=== PATIENT | female | born 1975 | race Caucasian/White ===

== ENCOUNTER 2016-10-29 13:20 | Emergency (ER) | payer MEDICARE, MEDICAID ==
[~2016-10-29] VITALS: Ht 162.6 cm; Wt 77.6 kg
[~2016-10-29 13:20] MED LIST: ALPR0.25; BUTA1CAP57 PO; CEPH-368 PO; CYCL-259 PO; DIAZ5TAB PO; ESTR1PAT10; METH750T2 PO; NICO1PAT5 TD; OXYC-229 PO; ROBAXIN; TOPI50TA35 PO; VENL150C PO; ZOLP12.52 PO
[2016-10-29 16:08] VITALS: BP 143/92
[2016-10-29] MEDS ORDERED: HYDROmorphone 1 MG/ML, 1ML ONE (16:37)
[2016-10-29 16:47] LABS: BLOOD UREA NITROGEN 17 mg/dL (7-18)
[2016-10-29] MEDS ORDERED: LORazepam 2 MG/ML, 1ML ONE (16:48)
[2016-10-29 16:52] LABS: IS PT STATUS REG ER OR PRE ER? YES
== END 2016-10-29 17:54 | disposition home or self-care (01) ==
LOC: ED 17:48
DX: R07.1 Chest pain on breathing (principal)
CPT/HCPCS: 36415; 71020; 80048; 82040; 84484; 85025; 93005

== ENCOUNTER 2019-12-31 12:19 | Emergency (ER) | payer MEDICARE ==
[~2019-12-31] VITALS: Ht 162.6 cm; Wt 90.0 kg
[~2019-12-31 12:19] MED LIST changes: +NICO-487 TD; -NICO1PAT5 TD; -OXYC-229 PO; +OXYC-307 PO
--- NOTE | 2019-12-31 12:20 | NUR ---
PT CHELSIE REMSA AFTER HER BROTHER CALLED EMS AFTER SHE SENT A PICTURE OF HER FACE, WITH RIGHT EYE DROOP TO HIM. PT PRESENTS A&OX4, SLOW TO RESPOND BUT ANSWERS WITH APPROPRIATE WORDS. R SIDE WEAKNESS PRESENT, PT ABLE TO MOVE ALL EXTREMITIES, AND DENIES LOSS OF FEELING. NO SIGNS OF ACUTE DISTRESS, RESPIRATIONS EVEN AND UNLABORED.
--- NOTE | 2019-12-31 12:20 | NUR ---
ERP TO BEDSIDE. VSS. WILL CONTINUE TO MONITOR AND WATCH FOR ORDERS.
--- NOTE | 2019-12-31 12:59 | NUR ---
PT TO IMAGING
[2019-12-31 13:10] LABS: BASOPHILS # (AUTO) 0.02 x10^3/uL (0-0.1); BASOPHILS % (AUTO) 1 % (0-1); EOSINOPHILS # (AUTO) 0.13 x10^3/uL (0-0.4); EOSINOPHILS % (AUTO) 3 % (1-7); LYMPHOCYTES # (AUTO) 2.53 x10^3/uL (1-3.4); LYMPHOCYTES % (AUTO) 53 % (22-44); MD NO; MEAN CORPUSCULAR HGB CONC 33.9 g/dL (32.4-35.8); MEAN CORPUSCULAR VOLUME 85.5 fL (80-100); MEAN PLATELET VOLUME 7.3 fL (7.4-10.4); MONOCYTES # (AUTO) 0.32 x10^3/uL (0.2-0.8); MONOCYTES % (AUTO) 7 % (2-9); NEUTROPHILS # (AUTO) 1.82 x10^3/uL (1.8-6.8); NEUTROPHILS % (AUTO) 38 % (42-75); PLATELET COUNT 255 x10^3/uL (130-400); RED BLOOD COUNT 4.38 x10^6/uL (3.82-5.3); RED CELL DISTRIBUTION WIDTH 14.6 % (9.6-15.2)
[2019-12-31 13:11] LABS: ALBUMIN 3.9 g/dL (3.4-5.0); ANION GAP 4 mmol/L (5-15); CHLORIDE 113 mmol/L (98-107); CREATININE 0.99 mg/dL (0.55-1.02)
[2019-12-31] MEDS ORDERED: GABA300C10 PO (13:18)
[2019-12-31] MEDS ORDERED: CYCL-259 PO (13:18)
--- NOTE | 2019-12-31 13:18 | NUR ---
PT LAYING IN BED, ANSWERING ALL QUESTIONS APPROPRIATELY, SLOW TO RESPOND. VSS, NO SIGNS OF DISTRESS, WILL CONTINUE TO MONITOR.
[2019-12-31 14:07] VITALS: BP 112/76
== END 2019-12-31 14:08 | disposition home or self-care (01) ==
LOC: ED 13:50
DX: G51.0 Bell's palsy (principal); R51 Headache; F17.200 Nicotine dependence, unspecified, uncomplicated
CPT/HCPCS: 36415; 70450; 80048; 82040; 85025; 93005; 99285; J7512